=== PATIENT | male | born 1985 | race Two or more races ===

== ENCOUNTER 2025-04-14 13:45 | Emergency (ER) | payer SELFPAY ==
[~2025-04-14] VITALS: Ht 185.4 cm; Wt 98.0 kg
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
[2025-04-14 19:21] VITALS: BP 153/101; PULSE 59; RESP 18; TEMP 98.5; O2SAT 97
== END 2025-04-14 19:44 | disposition short-term general hospital (02) ==
LOC: ER 13:45
DX: M43.12 Spondylolisthesis, cervical region (principal); V89.2XXA Person injured in unspecified motor-vehicle accident, traffic, initial encounter; Y93.89 Activity, other specified; Y92.410 Unspecified street and highway as the place of occurrence of the external cause; Y99.8 Other external cause status
CPT/HCPCS: 72040; 73100; 99291; 99292